=== PATIENT | female | born 1985 | race African-American/Black ===

== ENCOUNTER 2016-11-27 17:06 | Outpatient (CLI) | payer MEDICARE ==
[2016-11-27 18:44] LABS: Anion Gap 13 mmol/L (10-20); BUN (Urea Nitrogen) 13 mg/dL (7.0-18.7); Calc. Creatinine Clearance 0 mL/min (70-130); Calcium 10.2 mg/dL (7.8-10.44); Carbon Dioxide 25 mmol/L (22-29); Chloride 101 mmol/L (98-107); Estimated GFR-MDRD 68
[2016-11-27 18:54] LABS: #Lymphocytes 2.1 thou/uL (1.20-3.40); #Monocytes 0.9 thou/uL (0.11-0.59); #Neutrophils 11.3 thou/uL (1.40-6.50); %Basophils 0.2 % (0.0-1.0); %Eosinophils 0.3 % (0.0-10.0); %Lymphocytes 14.6 % (21.0-51.0); %Monocytes 6.4 % (0.0-10.0); Hematocrit 49.4 % (36.0-47.0); Mean Platelet Volume 7.2 fL (7.4-10.4); White Blood Cell (WBC) Count 14.4 thou/uL (4.8-10.8)
[2016-11-27 19:42] LABS: Neutrophil 80 % (42-75); Reactive Lymphocytes 5 % (0-10)
--- OUTSIDE RECORDS SUMMARY | 2016-11-27 21:07 | XMS | Clinical Summary ---
:1985 Author Organization [facility] Address [address] [place] [address] Phone Care Team Providers Name Role Phone , Primary Care Provider Unavailable Allergies Not on File Current Medications Not on file Active Problems Not on file Social History Tobacco Use Types Packs/Day Years Used Date Never Assessed Sex Assigned at Date Recorded Not on file Last Filed Vital Signs Not on file Plan of Treatment Not on file Results Not on filefrom Last 3 Months
--- OUTSIDE RECORDS SUMMARY | 2016-11-27 21:07 | XMS | Clinical Summary ---
:1985 Author Organization [facility] Address [address] [place] [address] Phone Care Team Providers Name Role Phone , Primary Care Provider Unavailable Allergies No Known Allergies Current Medications Prescription Sig. Disp. Refills Start Date End Date Status predniSONE Take 1 tablet (5 30 tablet 6 12/19/2015 Active (DELTASONE) 5 MG mg total) by mouth tabletIndications:S daily. /P kidney transplant carvedilol (COREG) Take 1 tablet 60 tablet 10 12/20/2015 Active 3.125 MG (3.125 mg total) 7 tabletIndications:S by mouth 2 (two) /P kidney times daily with transplant breakfast and dinner. sulfamethoxazole-tr Take 1 tablet by 10/25/2015 Active imethoprim mouth every (BACTRIM,SEPTRA) Thursday, Thursday, 400-80 mg per Thursday 3 x week . tablet tacrolimus Take 3 capsules 180 capsule 6 05/05/2016 Active (PROGRAF) 0.5 MG (1.5 mg total) by capsuleIndications: mouth 2 (two) S/P kidney times daily. transplant mycophenolate Take 250 mg by Active (CELLCEPT) 250 mg mouth 2 (two) capsule times daily . sulfamethoxazole-tr Take 1 tablet (80 36 tablet 3 08/13/2016 imethoprim mg of trimethoprim 7 (BACTRIM,SEPTRA) total) by mouth 400-80 mg per every Thursday, tabletIndications:S Thursday, Thursday /P kidney for 90 days. transplant Active Problems Problem Noted Date Urinary tract infection without hematuria, site unspecified 08/13/2016 Drug-induced diarrhea 10/25/2015 Edema, unspecified type 09/24/2015 Secondary hyperparathyroidism of renal origin ([facility]) 03/01/2015 Hypertension secondary to other renal disorders 01/16/2015 Oral thrush 01/09/2015 Last Assessment & Plan: She mentioned having sores in her mouth with white substance - nothing evident in clinic today. Will start on nystatin for prophylactic. 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 Labs are pending for today. Personal history of immunosuppressive therapy 12/26/2014 Last Assessment & Plan: She is tolerating her medications and denies any tremor or headache. We will adjust her doses according to her levels today. SOB (shortness of breath) 12/17/2014 End-stage renal disease due to systemic lupus erythematosus ([facility]) 12/12/2014 HTN (hypertension) 05/02/2013 Last Assessment & Plan: Her blood pressure is controlled on her current regimen. 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 She does not have evidence of recurrent disease at this time. Encounters Date Type Specialty Care Team Description 10/20/2016 Telephone Transplant Savita Mireles Appointment (Spoke with patient about her appointment. Patient stated she will need an early apointment due to school. please call her when you schedule her appointment.) from Last 3 Months Family History Medical History Relation Name Comments Diabetes type II Father Hypertension Father Cancer Mother Hypertension Mother Relation Name Status Comments Father Mother Social History Tobacco Use Types Packs/Day Years Used Date Never Smoker Alcohol Use Drinks/Week oz/Week Comments Yes socially every once in a while Sex Assigned at Date Recorded Not on file Last Filed Vital Signs Vital Sign Reading Time Taken Blood Pressure 123/91 08/13/2016 11:19 AM CDT Pulse 60 08/13/2016 11:19 AM CDT Temperature 36.7 C (98.1 F) 08/13/2016 11:19 AM CDT Respiratory Rate 16 08/13/2016 11:19 AM CDT Oxygen Saturation 99% 08/13/2016 11:19 AM CDT Inhaled Oxygen Concentration - - Weight 50.4 kg (111 lb 1.6 oz) 08/13/2016 11:19 AM CDT Height 170.2 cm (5' 7") 08/13/2016 11:19 AM CDT Body Mass Index 17.4 08/13/2016 11:19 AM CDT Plan of Treatment Health Maintenance Due Date Last Done Comments INFLUENZA VACCINE 11/23/2016 Implants Implanted Type Area Make Up Artist Device Expiration Model / Identifier Date Serial / Lot Stent,Uret Polaris 5fr X 10cm - [id number] Uro Stent Right: [employer] 2017 [id number] / Implanted:Qty: 1 on 12/12/2014 by Carmela Paul MD Abdomen [employer] / [id number] Results Not on filefrom Last 3 Months
== END 2016-11-27 17:07 | disposition home or self-care (01) ==
LOC: LABBT 17:06
PROVIDERS: ATTEND Specialist
DX: Z01.818 Encounter for other preprocedural examination (principal); Z94.0 Kidney transplant status; Z87.448 Personal history of other diseases of urinary system
CPT/HCPCS: 80048; 84703; 85025

== ENCOUNTER 2016-11-28 12:23 | Day surgery (SDC) | payer MEDICARE ==
[2016-11-27 17:25] VITALS: BMI 17.2
--- NOTE | 2016-11-28 05:59 | HP ---
HISTORY OF PRESENT ILLNESS: A 31-year-old female with lupus, end-stage renal disease. She was seen in [address] Smyth, at that time, she was undergoing dialysis, and had a left arm fistula. Apparently, this fistula was placed in [place]. At that time was evaluated and had been seen by Dr. Jan Nicole, and Dr. Storm, undergoing a right pulmonary decortication in 2009, and then a left pu lmonary decortication in 09/11/2009. The patient recalls having a fistula placed sometime in 2008 o r 2009. She does not recall where this was placed but we cannot find any records that it was done a [facility]; apparently she was referred to [place]. She underwent a successful transplan t in 12/12/2014 cadaveric and has been doing well. She complained of pain in her left shoulder, rad iating down to her arm, occurring at night, and other times during the day. Dr. Smyth performe d a fistulogram, he referred to my office, thinking that she had arterial steal syndrome. The patie nt's fistulogram revealed occlusion of the cephalic vein outflow at the shoulder. The patient was t hought to have an arterial steal, but the patient does not have symptoms of arterial steal. Her lef t hand function is good. Her left hand is warm. She has a palpable ulnar pulse. She has good hand strength and function. There were no signs of arterial insufficiency. I think her problems are re lated to her cephalic vein fistula outflow obstruction. Considering her cadaveric transplant, we wo uld like to preserve her fistula, she does not ever want to have a fistula in her right arm, and at her young age of 31, plan would be to transpose the cephalic vein in the left axilla. 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 She is working also. She is working at [employer]. ALLERGIES: None. TOBACCO: None. ALCOHOL: None. MEDICATIONS: Prograf 1.5 mg a day, CellCept daily, Bactrim 400 mg a day, Valcyte daily, Coreg daily , Protonix daily, amlodipine daily, Zofran as needed. PAST MEDICAL HISTORY: Lupus, end-stage renal disease with a functioning renal transplant, currently not on dialysis, transplant on 12/12/2014 in [place], hypertension. ALLERGIES: None. PAST SURGICAL HISTORY: Left arm fistula placed in 2009 or 2010 in [place]. On 2010, right and left pulmonary decortication. Fistula left arm in the past. Peritoneal dialysis catheter placement rem cliff as she was too small and could not handle the fluid volume to do peritoneal dialysis. REVIEW OF SYSTEMS: Ten point noncontributory. PHYSICAL EXAMINATION: VITAL SIGNS: Weight 117 pounds, height 67 inches, blood pressure 114/81, heart rate 74 and temperat ure 97.6 degrees. HEAD, EARS, EYES, NOSE, AND THROAT: Unremarkable. LUNGS: Clear to auscultation. CARDIAC: Regular rate and rhythm without murmur or gallop. ABDOMEN: Soft, nontender, no masses. EXTREMITIES: Left arm fistula, prominent pulsations. Left upper arm, cephalic vein fistula. Good hand function. Left normal capillary refill. Warm hand. Good hand strength. Palpable ulnar pulse . ASSESSMENT AND PLAN: 1. Dysfunctional fistula left upper arm with outflow venous obstruction at the cephalic vein, subcl boris junction. Status post fistulogram, Dr. Smyth, no evidence of arterial steal. This optio ns of ligation of her fistula versus salvage were given, and she chose the latter. Plan is to trans pose the upper arm cephalic vein fistula of the axillary vein. Fortunately, Dr. Smyth did not place a stent as he was not able to get a wire across the obstruction. Risks of infection, bleeding , reoperation and a small possibility of using saphenous vein was discussed, she consents. 2. Lupus. 3. Hypertension. 4. Renal transplant, 12/12/2014.
[2016-11-28] MEDS ORDERED: Protamine Sulfate 50 MG/5 ML VIAL ONE (13:17)
[2016-11-28] MEDS ORDERED: Lidocaine 1% w/Epinephrine 1:200K 30 ML VIAL ONE (13:17)
[2016-11-28] MEDS ORDERED: Bupivacaine PF 0.5% 30 ML VIAL ONE (13:17)
[2016-11-28] MEDS ORDERED: Heparin 5,000 UNITS/ML VIAL ONE (13:17)
[2016-11-28] MEDS ORDERED: Fentanyl 100 MCG/2 ML VIAL ONE ×2 (13:33→16:15)
[2016-11-28] MEDS ORDERED: Heparin 10,000 UNITS/1 ML VIAL ONE (13:33)
[2016-11-28] MEDS ORDERED: Midazolam HCl 2 mg/2 ml Vial ONE (13:33)
--- NOTE | 2016-11-28 23:24 | OP ---
DATE OF PROCEDURE: 11/28/2016 PREOPERATIVE DIAGNOSIS: Lupus; history of dialysis access, recent 2014; renal transplant; dysfuncti onal left arm dialysis fistula; cephalic vein outflow obstruction; subclavian vein junction refracto ry interventional management. POSTOPERATIVE DIAGNOSIS: Lupus; history of dialysis access, recent 2014; renal transplant; dysfunct ional left arm dialysis fistula; cephalic vein outflow obstruction; subclavian vein junction refract ory interventional management. PROCEDURE: The revision of left arm dialysis fistula, transposition of cephalic vein outflow from t he subclavian vein to the axillary vein. SURGEON: Dr. Luis Daniel Mon ANESTHESIA: General. Local 0.5% Marcaine without epinephrine, 30 mL, mixed with 1% Xylocaine with epinephrine, 30 mL. SURGEON: Luis Daniel Mon M.D. ESTIMATED BLOOD LOSS: 40 mL TRANSFUSED: None. FINDINGS: Excellent caliber cephalic vein, good caliber axillary vein. PROCEDURE: Patient was taken to the operating room where under general anesthesia, her left chest, shoulder, upper extremity was prepared with chloraprep, draped in routine fashion. Local anesthetic infiltrated into skin and subcutaneous tissue about the operative site. Incision made in the upper deltopectoral groove overlying the cephalic vein were segmental incision carried out along the cour se of the cephalic vein to the proximal upper arm. The vein was dissected free circumferentially, o ne large branch superiorly ligated between 3-0 silk sutures and the patient was given 6000 units of heparin intravenously. After adequate circulation time, the outflow cephalic vein in the shoulder d issected free, clamped, divided and stump ligated with a stick suture of 2-0 silk. The vein had bee n clamped distally with a vascular clamp. A tunnel was then created with a large Hoda clamp and br ought through the tunnel and opened and it had good arterial flow. Vascular clamp applied. Axillar y vein had been dissected free via left axillary incision. It was of good caliber. It is controlle d proximally and distally with Silastic vessel loops. Nerves kept free of harm, the vein was contro lled proximally and distally and longitudinal venotomy made for a 3 cm length and stay sutures of 6- 0 Prolene placed and the end of the cephalic vein tailored for an end cephalic vein to side axillary vein anastomosis using continuous suture of 6-0 Prolene. Once anastomosis completed, vascular cont rol was released. There was good flow in the fistula and a prominent pulsations had resolved and sh e a good thrill and bruit. Good hemostasis noted. The patient was given 25 mg of protamine intrave nously. Surgicel applied. Good hemostasis ensured. Local anesthetic infiltrated into skin and sub cutaneous tissue about the operative sites. Subcutaneous tissues approximated with 3-0 Monocryl, sk in with subdermal 4-0 Monocryl and DermaGlue applied.
== END 2016-11-28 17:55 ==
LOC: SDC 12:23
PROVIDERS: ATTEND Specialist
PROC: 05W Upper Veins, Revision (ICD-10-PCS; principal; 2016-11-28)
DX: T82.590A Other mechanical complication of surgically created arteriovenous fistula, initial encounter (principal); M32.9 Systemic lupus erythematosus, unspecified; I12.0 Hypertensive chronic kidney disease with stage 5 chronic kidney disease or end stage renal disease; N18.6 End stage renal disease; Z99.2 Dependence on renal dialysis; Z79.899 Other long term (current) drug therapy; Z94.0 Kidney transplant status
CPT/HCPCS: J1644; J2250; J2720; J3010; S0020

== ENCOUNTER 2018-02-18 13:08 | Outpatient (CLI) | payer MEDICARE ==
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
== END 2018-02-18 13:09 | disposition home or self-care (01) ==
LOC: BICCT 13:08
PROVIDERS: ATTEND Internal Medicine Nephrology
DX: R10.9 Unspecified abdominal pain (principal); N18.6 End stage renal disease; M87.851 Other osteonecrosis, right femur; M87.852 Other osteonecrosis, left femur; N99.840 Postprocedural hematoma of a genitourinary system organ or structure following a genitourinary system procedure; Z94.0 Kidney transplant status
CPT/HCPCS: 74176

== ENCOUNTER 2021-01-31 21:30 | Inpatient (IN) | payer BC ==
[2021-01-31] MEDS ORDERED: Morphine 4 MG/ML VIAL ONE (23:55)
[2021-01-31 23:57] LABS: #Lymphocytes 0.6 thou/uL (1.20-3.40); #Monocytes 0.1 thou/uL (0.11-0.59); #Neutrophils 9.2 thou/uL (1.40-6.50); %Basophils 0.5 % (0.0-1.0); %Eosinophils 0.1 % (0.0-10.0); %Lymphocytes 6.3 % (21.0-51.0); %Monocytes 0.5 % (0.0-10.0); %Neutrophils 92.5 % (42.0-75.0); Hemoglobin 9.2 g/dL (12.0-16.0); Mean Corpuscular HGB CONC 36.4 g/dL (32.0-36.0); Mean Corpuscular Volume 79.7 fL (78.0-98.0); Mean Platelet Volume 9.1 fL (7.4-10.4); Platelet Count 175 thou/uL (130-400); RBC Distribution Width 14.8 % (11.5-14.5); Red Blood Cell (RBC) Count 3.19 mill/uL (4.20-5.40)
[2021-02-01 00:05] LABS: BHCG - Serum Negative (NEGATIVE); Pregs Control Background? CLEAR/WHITE (CLR/WHITE); Pregs Control Bar Appear? YES (CONTROL BAR)
[2021-02-01 00:14] LABS: ALT (SGPT) 125 U/L (8-55); AST (SGOT) 82 U/L (5-34); Albumin 3.7 g/dL (3.5-5.0); Alkaline Phosphatase 77 U/L (40-110); Anion Gap 17 mmol/L (10-20); BUN (Urea Nitrogen) 114 mg/dL (7.0-18.7); Bilirubin, Total 0.8 mg/dL (0.2-1.2); Calc. Creatinine Clearance 0 mL/min (70-130); Calcium 9.9 mg/dL (7.8-10.44); Carbon Dioxide 20 mmol/L (22-29); Chloride 100 mmol/L (98-107); Globulin 2.9 g/dL (2.4-3.5); Glucose 173 mg/dL (70-105); Lipase 63 U/L (8-78); Potassium 5.2 mmol/L (3.5-5.1); Protein, Total 6.6 g/dL (6.0-8.3); Sodium 132 mmol/L (136-145)
[2021-02-01] MEDS ORDERED: Ondansetron ODT 4 MG TAB SL PRN (02:00)
[2021-02-01] MEDS ORDERED: Ondansetron PF 4 MG/2 ML Vial IVP PRN (02:00)
[2021-02-01] MEDS: Morphine 4 MG/ML VIAL SLOW IVP PRN ×3 (02:22→09:12)
[2021-02-01] MEDS ORDERED: Pantoprazole 40 MG VIAL IVP SCH (04:15)
[2021-02-01] MEDS ORDERED: Acetaminophen 650 MG Suppository PR PRN (04:16)
[2021-02-01 04:39] LABS: #Lymphocytes 0.6 thou/uL (1.20-3.40); #Monocytes 0.1 thou/uL (0.11-0.59); #Neutrophils 6.8 thou/uL (1.40-6.50); %Basophils 0.6 % (0.0-1.0); %Eosinophils 0.3 % (0.0-10.0); %Lymphocytes 7.4 % (21.0-51.0); %Monocytes 1.2 % (0.0-10.0); %Neutrophils 90.5 % (42.0-75.0); Hemoglobin 7.8 g/dL (12.0-16.0); Mean Corpuscular HGB CONC 35.2 g/dL (32.0-36.0); Mean Corpuscular Volume 79.7 fL (78.0-98.0); Platelet Count 155 thou/uL (130-400); RBC Distribution Width 14.8 % (11.5-14.5); Red Blood Cell (RBC) Count 2.79 mill/uL (4.20-5.40); White Blood Cell (WBC) Count 7.5 thou/uL (4.8-10.8)
[2021-02-01 04:58] LABS: Anion Gap 16 mmol/L (10-20); BUN (Urea Nitrogen) 114 mg/dL (7.0-18.7); Calc. Creatinine Clearance 5 mL/min (70-130); Calcium 9.1 mg/dL (7.8-10.44); Carbon Dioxide 19 mmol/L (22-29); Chloride 102 mmol/L (98-107); Glucose 134 mg/dL (70-105); Potassium 5.2 mmol/L (3.5-5.1); Sodium 132 mmol/L (136-145)
[2021-02-01 07:06] LABS: Iron 139 ug/dL (50-170); Iron Binding Capacity, Total 140 mcg/dL (265-497)
[2021-02-01] MEDS ORDERED: Lidocaine 4% Cream 5 GM TUBE w/ Tegaderm TOP SCH (09:15)
[2021-02-01] MEDS ORDERED: Epoetin (ESRD) 20,000 UNITS/ML SC SCH (10:15)
[2021-02-01 11:13] LABS: SARS-CoV-2 PCR by NAA Not Detected (NotDetected)
[2021-02-01] MEDS: Heparin 5,000 UNITS/ML VIAL SC SCH ×3 (11:50→21:31)
[2021-02-01] MEDS: Sevelamer Carbonate 800 MG TAB PO SCH ×3 (11:50→18:02)
[2021-02-01] MEDS: Mycophenolate ER 180 MG TAB PO SCH ×2 (13:54→23:07)
[2021-02-01] MEDS: Hydroxychloroquine Sulfate 200 MG TAB PO SCH (13:54)
[2021-02-01] MEDS: Tacrolimus 0.5 MG CAP PO SCH ×3 (13:55→21:28)
[2021-02-01] MEDS: EPOETIN ALFA-EPBX (ESRD) 4,000 UNIT/ML VIAL SC SCH (13:57)
[2021-02-01 20:17] LABS: Bacteria/HPF None Seen HPF (None Seen); Bilirubin Negative (Negative); Blood, Urine Negative (Negative); Clarity Clear (Clear); Glucose, Urine (Dipstick) 30 mg/dL (Negative); Ketone, Urine Negative (Negative); Leukocyte Negative Leu/uL (Negative); Nitrite Negative (Negative); Protein, Urine (Dipstick) 20 mg/dL (Neg-Trace); RBC/HPF 0-3 HPF (0-3); Specific Gravity, Urine 1.013 (1.002-1.036); Squamous Epithelial 0-3 HPF (0-3); Urobilinogen Normal mg/dL (Less than 2); WBC/HPF 0-3 HPF (0-3); pH, Urine 7.5 (5.0-9.0)
[2021-02-01] MEDS: Pantoprazole 40 MG VIAL IVP SCH (21:29)
[2021-02-01] MEDS: NIFEdipine XL 30 MG TAB PO SCH (21:49)
[2021-02-01] MEDS: Carvedilol 6.25 MG TAB PO SCH (21:50)
[2021-02-01] MEDS: oxyCODONE 5 MG TAB PO SCH (23:08)
[2021-02-02 04:53] LABS: #Lymphocytes 0.6 thou/uL (1.20-3.40); #Monocytes 0.2 thou/uL (0.11-0.59); #Neutrophils 3.7 thou/uL (1.40-6.50); %Basophils 0.3 % (0.0-1.0); %Eosinophils 0.8 % (0.0-10.0); %Lymphocytes 13.3 % (21.0-51.0); %Monocytes 5.1 % (0.0-10.0); %Neutrophils 80.5 % (42.0-75.0); Hemoglobin 7.2 g/dL (12.0-16.0); Mean Corpuscular Hemoglobin 27.5 pg (27.0-31.0); Mean Corpuscular Volume 80.7 fL (78.0-98.0); Mean Platelet Volume 8.9 fL (7.4-10.4); Platelet Count 153 thou/uL (130-400); RBC Distribution Width 14.8 % (11.5-14.5); Red Blood Cell (RBC) Count 2.63 mill/uL (4.20-5.40); White Blood Cell (WBC) Count 4.6 thou/uL (4.8-10.8)
[2021-02-02 05:11] LABS: Anion Gap 12 mmol/L (10-20); BUN (Urea Nitrogen) 38 mg/dL (7.0-18.7); Calc. Creatinine Clearance 9 mL/min (70-130); Calcium 9.4 mg/dL (7.8-10.44); Carbon Dioxide 30 mmol/L (22-29); Chloride 99 mmol/L (98-107); Glucose 106 mg/dL (70-105); Phosphorus 4.4 mg/dL (2.3-4.7); Potassium 4.7 mmol/L (3.5-5.1); Sodium 136 mmol/L (136-145)
[2021-02-02] MEDS: oxyCODONE 5 MG TAB PO SCH ×4 (06:22→23:43)
[2021-02-02] MEDS ORDERED: Pantoprazole 40 MG VIAL IVP SCH (09:00)
[2021-02-02] MEDS: Sevelamer Carbonate 800 MG TAB PO SCH ×3 (09:02→17:14)
[2021-02-02] MEDS: Carvedilol 6.25 MG TAB PO SCH ×2 (09:02→21:44)
[2021-02-02] MEDS: predniSONE 20 MG TAB PO SCH (09:02)
[2021-02-02] MEDS: Calcitriol 0.25 MCG CAP PO SCH (09:02)
[2021-02-02] MEDS: Heparin 5,000 UNITS/ML VIAL SC SCH ×3 (09:02→21:32)
[2021-02-02] MEDS: Pantoprazole 40 MG VIAL IVP SCH ×2 (09:03→21:43)
[2021-02-02] MEDS: Mycophenolate ER 180 MG TAB PO SCH ×2 (09:03→21:44)
[2021-02-02] MEDS: Polyethylene Glycol 3350 17 GM Packet PO SCH (09:03)
[2021-02-02] MEDS: Hydroxychloroquine Sulfate 200 MG TAB PO SCH (09:03)
[2021-02-02] MEDS ORDERED: PROPOFOL 200 MG/20 ML VIAL ONE (14:38)
[2021-02-02] MEDS ORDERED: LIDOCAINE 4% Topical Sol 4 ML SOLN.PK.G. TP SCH (15:00)
[2021-02-02] MEDS ORDERED: Lidocaine 2% Jelly 5 ML TUBE TOP SCH (15:15)
[2021-02-02] MEDS: NIFEdipine XL 30 MG TAB PO SCH (21:43)
[2021-02-02] MEDS: Tacrolimus 0.5 MG CAP PO SCH (21:43)
[2021-02-03] MEDS: oxyCODONE 5 MG TAB PO SCH ×4 (08:17→23:59)
[2021-02-03] MEDS: Sevelamer Carbonate 800 MG TAB PO SCH ×3 (09:37→17:48)
[2021-02-03] MEDS: predniSONE 20 MG TAB PO SCH (09:37)
[2021-02-03] MEDS: Polyethylene Glycol 3350 17 GM Packet PO SCH (09:37)
[2021-02-03] MEDS: Tacrolimus 0.5 MG CAP PO SCH ×2 (09:38→21:11)
[2021-02-03] MEDS: Calcitriol 0.25 MCG CAP PO SCH (09:39)
[2021-02-03] MEDS: Heparin 5,000 UNITS/ML VIAL SC SCH ×3 (09:39→21:10)
[2021-02-03] MEDS: Carvedilol 6.25 MG TAB PO SCH ×2 (09:39→21:09)
[2021-02-03] MEDS: Pantoprazole 40 MG VIAL IVP SCH (09:40)
[2021-02-03] MEDS: Mycophenolate ER 180 MG TAB PO SCH ×2 (09:47→21:10)
[2021-02-03] MEDS: Hydroxychloroquine Sulfate 200 MG TAB PO SCH (10:13)
[2021-02-03] MEDS ORDERED: GoLYTELY 4,000 ml Bottle PO SCH (12:00)
[2021-02-03] MEDS: diphenhydrAMINE 25 MG CAP PO PRN ×2 (15:39→21:11)
[2021-02-03] MEDS: Ferrous Sulfate 325 MG TAB PO SCH (17:50)
[2021-02-03] MEDS: NIFEdipine XL 30 MG TAB PO SCH (21:10)
[2021-02-04 04:26] LABS: #Eosinphils 0.1 thou/uL (0.0-0.7); #Lymphocytes 0.5 thou/uL (1.20-3.40); #Monocytes 0.1 thou/uL (0.11-0.59); %Basophils 0.2 % (0.0-1.0); %Eosinophils 1.4 % (0.0-10.0); %Lymphocytes 9.3 % (21.0-51.0); %Monocytes 1.4 % (0.0-10.0); %Neutrophils 87.7 % (42.0-75.0); Hemoglobin 6.9 g/dL (12.0-16.0); Mean Corpuscular HGB CONC 34.8 g/dL (32.0-36.0); Mean Corpuscular Hemoglobin 28.4 pg (27.0-31.0); Mean Corpuscular Volume 81.6 fL (78.0-98.0); Mean Platelet Volume 8.7 fL (7.4-10.4); Platelet Count 145 thou/uL (130-400); RBC Distribution Width 14.9 % (11.5-14.5); Red Blood Cell (RBC) Count 2.42 mill/uL (4.20-5.40); White Blood Cell (WBC) Count 5.7 thou/uL (4.8-10.8)
[2021-02-04 04:50] LABS: ALT (SGPT) 150 U/L (8-55); AST (SGOT) 65 U/L (5-34); Albumin 3.5 g/dL (3.5-5.0); Alkaline Phosphatase 77 U/L (40-110); Anion Gap 13 mmol/L (10-20); BUN (Urea Nitrogen) 23 mg/dL (7.0-18.7); Bilirubin, Total 0.8 mg/dL (0.2-1.2); Calc. Creatinine Clearance 8 mL/min (70-130); Carbon Dioxide 30 mmol/L (22-29); Chloride 96 mmol/L (98-107); Globulin 2.7 g/dL (2.4-3.5); Glucose 101 mg/dL (70-105); Potassium 4.3 mmol/L (3.5-5.1); Protein, Total 6.2 g/dL (6.0-8.3); Sodium 135 mmol/L (136-145)
[2021-02-04] MEDS: oxyCODONE 5 MG TAB PO SCH (05:40)
[2021-02-04] MEDS ORDERED: oxyCODONE 5 MG TAB PO PRN (08:16)
[2021-02-04] MEDS: Ferrous Sulfate 325 MG TAB PO SCH ×2 (09:56→17:59)
[2021-02-04] MEDS: predniSONE 20 MG TAB PO SCH (09:56)
[2021-02-04] MEDS: Sevelamer Carbonate 800 MG TAB PO SCH ×3 (09:56→18:00)
[2021-02-04] MEDS: Polyethylene Glycol 3350 17 GM Packet PO SCH (10:03)
[2021-02-04] MEDS: Pantoprazole 40 MG VIAL IVP SCH (10:03)
[2021-02-04] MEDS: Calcitriol 0.25 MCG CAP PO SCH (10:04)
[2021-02-04] MEDS: Hydroxychloroquine Sulfate 200 MG TAB PO SCH (10:04)
[2021-02-04] MEDS: Tacrolimus 0.5 MG CAP PO SCH ×2 (10:04→21:39)
[2021-02-04] MEDS: Carvedilol 6.25 MG TAB PO SCH ×2 (10:05→21:38)
[2021-02-04] MEDS: Sulfameth/Trimethoprim SS 400-80MG TAB PO SCH (10:06)
[2021-02-04] MEDS: Mycophenolate ER 180 MG TAB PO SCH ×2 (10:07→23:06)
[2021-02-04 11:22] LABS: PTT 35.5 sec (22.9-36.1)
[2021-02-04] MEDS ORDERED: Ondansetron PF 4 MG/2 ML Vial IVP PRN (13:39)
[2021-02-04] MEDS: Ondansetron ODT 4 MG TAB PO PRN (14:08)
[2021-02-04] MEDS: diphenhydrAMINE 25 MG CAP PO PRN ×2 (14:08→21:38)
[2021-02-05 05:10] LABS: #Eosinphils 0.1 thou/uL (0.0-0.7); #Lymphocytes 0.7 thou/uL (1.20-3.40); #Monocytes 0.1 thou/uL (0.11-0.59); %Basophils 0.4 % (0.0-1.0); %Eosinophils 2.8 % (0.0-10.0); %Lymphocytes 18.8 % (21.0-51.0); %Monocytes 1.6 % (0.0-10.0); %Neutrophils 76.3 % (42.0-75.0); Hemoglobin 8.1 g/dL (12.0-16.0); Mean Corpuscular HGB CONC 35.6 g/dL (32.0-36.0); Mean Corpuscular Hemoglobin 29.3 pg (27.0-31.0); Mean Corpuscular Volume 82.2 fL (78.0-98.0); Mean Platelet Volume 8.3 fL (7.4-10.4); Platelet Count 169 thou/uL (130-400); RBC Distribution Width 14.6 % (11.5-14.5); Red Blood Cell (RBC) Count 2.78 mill/uL (4.20-5.40); White Blood Cell (WBC) Count 3.9 thou/uL (4.8-10.8)
[2021-02-05 05:33] LABS: Anion Gap 14 mmol/L (10-20); BUN (Urea Nitrogen) 27 mg/dL (7.0-18.7); Calc. Creatinine Clearance 3 mL/min (70-130); Calcium 9.6 mg/dL (7.8-10.44); Carbon Dioxide 29 mmol/L (22-29); Chloride 98 mmol/L (98-107); Glucose 114 mg/dL (70-105); Potassium 4.6 mmol/L (3.5-5.1); Sodium 136 mmol/L (136-145)
[2021-02-05] MEDS ORDERED: Lidocaine 2% Jelly 5 ML TUBE TOP SCH (08:15)
[2021-02-05] MEDS: Ferrous Sulfate 325 MG TAB PO SCH ×2 (11:51→13:17)
[2021-02-05] MEDS: Sevelamer Carbonate 800 MG TAB PO SCH ×3 (11:51→17:07)
[2021-02-05] MEDS: predniSONE 20 MG TAB PO SCH (13:16)
[2021-02-05] MEDS: Mycophenolate ER 180 MG TAB PO SCH ×2 (13:16→20:45)
[2021-02-05] MEDS: Calcitriol 0.25 MCG CAP PO SCH (13:17)
[2021-02-05] MEDS: Carvedilol 6.25 MG TAB PO SCH ×2 (13:17→20:45)
[2021-02-05] MEDS: Tacrolimus 0.5 MG CAP PO SCH ×2 (13:18→20:46)
[2021-02-05] MEDS: Pantoprazole 40 MG VIAL IVP SCH (13:19)
[2021-02-05] MEDS: Hydroxychloroquine Sulfate 200 MG TAB PO SCH (13:19)
[2021-02-05] MEDS: Polyethylene Glycol 3350 17 GM Packet PO SCH ×2 (13:24→20:45)
[2021-02-06] MEDS: diphenhydrAMINE 25 MG CAP PO PRN (01:10)
[2021-02-06 06:27] LABS: #Eosinphils 0.1 thou/uL (0.0-0.7); #Lymphocytes 0.6 thou/uL (1.20-3.40); #Monocytes 0.1 thou/uL (0.11-0.59); #Neutrophils 4.8 thou/uL (1.40-6.50); %Basophils 0.4 % (0.0-1.0); %Eosinophils 1.3 % (0.0-10.0); %Lymphocytes 10.4 % (21.0-51.0); %Monocytes 1.7 % (0.0-10.0); %Neutrophils 86.3 % (42.0-75.0); Hemoglobin 7.9 g/dL (12.0-16.0); Mean Corpuscular HGB CONC 35.9 g/dL (32.0-36.0); Mean Corpuscular Hemoglobin 29.4 pg (27.0-31.0); Mean Corpuscular Volume 81.9 fL (78.0-98.0); Mean Platelet Volume 8.2 fL (7.4-10.4); Platelet Count 138 thou/uL (130-400); White Blood Cell (WBC) Count 5.6 thou/uL (4.8-10.8)
[2021-02-06 06:48] LABS: Anion Gap 14 mmol/L (10-20); BUN (Urea Nitrogen) 16 mg/dL (7.0-18.7); Calc. Creatinine Clearance 9 mL/min (70-130); Calcium 9.8 mg/dL (7.8-10.44); Carbon Dioxide 30 mmol/L (22-29); Chloride 97 mmol/L (98-107); Glucose 81 mg/dL (70-105); Potassium 4.9 mmol/L (3.5-5.1); Sodium 136 mmol/L (136-145)
[2021-02-06] MEDS: predniSONE 20 MG TAB PO SCH (08:41)
[2021-02-06] MEDS: Ferrous Sulfate 325 MG TAB PO SCH ×2 (08:41→16:20)
[2021-02-06] MEDS: Sevelamer Carbonate 800 MG TAB PO SCH ×3 (08:42→16:20)
[2021-02-06] MEDS: Carvedilol 6.25 MG TAB PO SCH ×2 (08:42→21:53)
[2021-02-06] MEDS: Calcitriol 0.25 MCG CAP PO SCH (08:42)
[2021-02-06] MEDS: Mycophenolate ER 180 MG TAB PO SCH ×2 (08:43→21:52)
[2021-02-06] MEDS: Hydroxychloroquine Sulfate 200 MG TAB PO SCH (08:43)
[2021-02-06] MEDS: Pantoprazole 40 MG VIAL IVP SCH (08:44)
[2021-02-06] MEDS: Sulfameth/Trimethoprim SS 400-80MG TAB PO SCH (08:44)
[2021-02-06] MEDS: Tacrolimus 0.5 MG CAP PO SCH ×2 (08:45→21:54)
[2021-02-06] MEDS: Polyethylene Glycol 3350 17 GM Packet PO SCH ×2 (08:52→21:50)
[2021-02-06 09:43] VITALS: BMI 17.1
[2021-02-06 10:17] LABS: Tacrolimus 5.3 ng/mL (2.0-20.0)
[2021-02-07] MEDS: diphenhydrAMINE 25 MG CAP PO PRN (01:18)
[2021-02-07 06:41] LABS: #Eosinphils 0.1 thou/uL (0.0-0.7); #Lymphocytes 0.9 thou/uL (1.20-3.40); #Monocytes 0.1 thou/uL (0.11-0.59); #Neutrophils 4.3 thou/uL (1.40-6.50); %Basophils 0.4 % (0.0-1.0); %Eosinophils 1.9 % (0.0-10.0); %Lymphocytes 15.5 % (21.0-51.0); %Monocytes 2.6 % (0.0-10.0); %Neutrophils 79.6 % (42.0-75.0); Hemoglobin 7.9 g/dL (12.0-16.0); Mean Corpuscular HGB CONC 35.9 g/dL (32.0-36.0); Mean Corpuscular Hemoglobin 29.5 pg (27.0-31.0); Mean Platelet Volume 8.1 fL (7.4-10.4); Platelet Count 160 thou/uL (130-400); RBC Distribution Width 15.1 % (11.5-14.5); Red Blood Cell (RBC) Count 2.69 mill/uL (4.20-5.40); White Blood Cell (WBC) Count 5.4 thou/uL (4.8-10.8)
[2021-02-07 06:56] LABS: Anion Gap 15 mmol/L (10-20); BUN (Urea Nitrogen) 25 mg/dL (7.0-18.7); Calc. Creatinine Clearance 7 mL/min (70-130); Calcium 10.2 mg/dL (7.8-10.44); Carbon Dioxide 32 mmol/L (22-29); Chloride 96 mmol/L (98-107); Glucose 111 mg/dL (70-105); Potassium 4.8 mmol/L (3.5-5.1); Sodium 138 mmol/L (136-145)
[2021-02-07] MEDS: Ferrous Sulfate 325 MG TAB PO SCH ×2 (12:23→17:04)
[2021-02-07] MEDS: Sevelamer Carbonate 800 MG TAB PO SCH ×3 (12:23→17:04)
[2021-02-07] MEDS: Tacrolimus 0.5 MG CAP PO SCH ×2 (12:26→21:23)
[2021-02-07] MEDS: Mycophenolate ER 180 MG TAB PO SCH ×2 (12:26→21:25)
[2021-02-07] MEDS: Calcitriol 0.25 MCG CAP PO SCH (12:27)
[2021-02-07] MEDS: predniSONE 20 MG TAB PO SCH (12:27)
[2021-02-07] MEDS: Hydroxychloroquine Sulfate 200 MG TAB PO SCH (12:27)
[2021-02-07] MEDS: Polyethylene Glycol 3350 17 GM Packet PO SCH ×2 (12:27→21:26)
[2021-02-07] MEDS: Carvedilol 6.25 MG TAB PO SCH ×2 (12:27→21:25)
[2021-02-07] MEDS: Acetaminophen 325 MG TAB PO PRN (13:27)
[2021-02-07] MEDS: Ondansetron ODT 4 MG TAB PO PRN (13:27)
[2021-02-07] MEDS: Pantoprazole 40 MG VIAL IVP SCH (13:37)
[2021-02-07] MEDS: Calcium Carbonate 500 MG ChewTAB PO PRN (23:46)
[2021-02-08] MEDS: diphenhydrAMINE 25 MG CAP PO PRN (01:08)
[2021-02-08] MEDS: Sevelamer Carbonate 800 MG TAB PO SCH ×3 (09:39→15:39)
[2021-02-08] MEDS: Tacrolimus 0.5 MG CAP PO SCH ×2 (09:39→21:49)
[2021-02-08] MEDS: Mycophenolate ER 180 MG TAB PO SCH ×2 (09:39→21:50)
[2021-02-08] MEDS: Hydroxychloroquine Sulfate 200 MG TAB PO SCH (09:40)
[2021-02-08] MEDS: Carvedilol 6.25 MG TAB PO SCH ×2 (09:40→21:50)
[2021-02-08] MEDS: predniSONE 20 MG TAB PO SCH (09:40)
[2021-02-08] MEDS: Sulfameth/Trimethoprim SS 400-80MG TAB PO SCH (09:40)
[2021-02-08] MEDS: Calcitriol 0.25 MCG CAP PO SCH (09:40)
[2021-02-08] MEDS: Ferrous Sulfate 325 MG TAB PO SCH ×2 (09:41→15:39)
[2021-02-08] MEDS: Polyethylene Glycol 3350 17 GM Packet PO SCH ×2 (10:06→21:50)
[2021-02-08] MEDS: EPOETIN ALFA-EPBX (ESRD) 4,000 UNIT/ML VIAL SC SCH (12:44)
[2021-02-09] MEDS: Calcium Carbonate 500 MG ChewTAB PO PRN (00:12)
[2021-02-09] MEDS: diphenhydrAMINE 25 MG CAP PO PRN (00:12)
[2021-02-09 04:47] LABS: #Lymphocytes 0.5 thou/uL (1.20-3.40); #Monocytes 0.1 thou/uL (0.11-0.59); #Neutrophils 2.9 thou/uL (1.40-6.50); %Basophils 0.2 % (0.0-1.0); %Eosinophils 0.9 % (0.0-10.0); %Lymphocytes 13.2 % (21.0-51.0); %Monocytes 3.6 % (0.0-10.0); %Neutrophils 82.1 % (42.0-75.0); Hemoglobin 7.7 g/dL (12.0-16.0); Mean Corpuscular HGB CONC 35.1 g/dL (32.0-36.0); Mean Corpuscular Volume 82.6 fL (78.0-98.0); Mean Platelet Volume 7.7 fL (7.4-10.4); Platelet Count 181 thou/uL (130-400); RBC Distribution Width 15.6 % (11.5-14.5); Red Blood Cell (RBC) Count 2.65 mill/uL (4.20-5.40); White Blood Cell (WBC) Count 3.5 thou/uL (4.8-10.8)
[2021-02-09 05:16] LABS: ALT (SGPT) 88 U/L (8-55); AST (SGOT) 28 U/L (5-34); Albumin 3.4 g/dL (3.5-5.0); Alkaline Phosphatase 73 U/L (40-110); Anion Gap 11 mmol/L (10-20); BUN (Urea Nitrogen) 21 mg/dL (7.0-18.7); Bilirubin, Total 0.6 mg/dL (0.2-1.2); Calc. Creatinine Clearance 7 mL/min (70-130); Calcium 10.2 mg/dL (7.8-10.44); Carbon Dioxide 30 mmol/L (22-29); Chloride 97 mmol/L (98-107); Globulin 2.8 g/dL (2.4-3.5); Glucose 137 mg/dL (70-105); Potassium 5.4 mmol/L (3.5-5.1); Protein, Total 6.2 g/dL (6.0-8.3); Sodium 133 mmol/L (136-145)
[2021-02-09] MEDS: Ferrous Sulfate 325 MG TAB PO SCH ×2 (10:11→13:53)
[2021-02-09] MEDS: Polyethylene Glycol 3350 17 GM Packet PO SCH (10:11)
[2021-02-09] MEDS: Sevelamer Carbonate 800 MG TAB PO SCH ×2 (10:11→13:54)
[2021-02-09] MEDS: Acetaminophen 325 MG TAB PO PRN (11:46)
[2021-02-09 11:54] VITALS: BP 142/90; TEMP 98
[2021-02-09] MEDS: Mycophenolate ER 180 MG TAB PO SCH (13:52)
[2021-02-09] MEDS: Tacrolimus 0.5 MG CAP PO SCH (13:52)
[2021-02-09] MEDS: predniSONE 20 MG TAB PO SCH (13:53)
[2021-02-09] MEDS: Calcitriol 0.25 MCG CAP PO SCH (13:53)
[2021-02-09] MEDS: Hydroxychloroquine Sulfate 200 MG TAB PO SCH (13:53)
[2021-02-09] MEDS: Carvedilol 6.25 MG TAB PO SCH (13:53)
[2021-02-11] MEDS ORDERED: Sulfameth/Trimethoprim SS 400-80MG TAB PO SCH (10:00)
== END 2021-02-09 14:23 | disposition home or self-care (01) | DRG 698 ==
LOC: ERS 21:30 → 2NO 02-01 00:45
PROVIDERS: ADMIT Student in an Organized Health Care Education/Training Program; ATTEND Internal Medicine
PROC: 5A1D70Z Performance of Urinary Filtration, Intermittent, Less than 6 Hours Per Day (ICD-10-PCS; 2021-02-01)
PROC: 0DB68ZX Excision of Stomach, Via Natural or Artificial Opening Endoscopic, Diagnostic (ICD-10-PCS; principal; 2021-02-02)
PROC: 30233N1 Transfusion of Nonautologous Red Blood Cells into Peripheral Vein, Percutaneous Approach (ICD-10-PCS; 2021-02-04)
DX: T86.11 Kidney transplant rejection (principal); N18.6 End stage renal disease; E87.1 Hypo-osmolality and hyponatremia; N25.81 Secondary hyperparathyroidism of renal origin; I13.0 Hypertensive heart and chronic kidney disease with heart failure and stage 1 through stage 4 chronic kidney disease, or unspecified chronic kidney disease; I50.32 Chronic diastolic (congestive) heart failure; Z20.822 Contact with and (suspected) exposure to COVID-19; R10.9 Unspecified abdominal pain; Y83.0 Surgical operation with transplant of whole organ as the cause of abnormal reaction of the patient, or of later complication, without mention of misadventure at the time of the procedure; D63.1 Anemia in chronic kidney disease; E87.5 Hyperkalemia; I95.9 Hypotension, unspecified; M32.14 Glomerular disease in systemic lupus erythematosus; F41.9 Anxiety disorder, unspecified; K29.00 Acute gastritis without bleeding; K52.9 Noninfective gastroenteritis and colitis, unspecified; Z91.14 Patient's other noncompliance with medication regimen; Z88.5 Allergy status to narcotic agent; Z79.52 Long term (current) use of systemic steroids; Z79.899 Other long term (current) drug therapy; Z48.22 Encounter for aftercare following kidney transplant
CPT/HCPCS: 36415; 36416; 36430; 74150; 76700; 76856; 80048; 80053; 80197; 82728; 83540; 83550; 83690; 83880; 83970; 84100; 84484; 84703; 85025; 85610; 85730; 86704; 86706; 86803; 86850; 86900; 86901; 87340; 88305; 88312; 90935; 93005; 93306; 93976; 96374; C9113; G0257; J1644; J2270; J2704; J7507; J7512; J7518; J8499; P9016; Q0162; Q5105; U0003; U0005

== ENCOUNTER 2021-02-26 11:12 | Emergency (ER) | payer BC ==
[2021-02-26 11:58] LABS: #Lymphocytes 0.7 thou/uL (1.20-3.40); #Monocytes 0.3 thou/uL (0.11-0.59); #Neutrophils 3.1 thou/uL (1.40-6.50); %Basophils 0.2 % (0.0-1.0); %Lymphocytes 16.7 % (21.0-51.0); %Monocytes 6.8 % (0.0-10.0); %Neutrophils 75.4 % (42.0-75.0); Hemoglobin 7.3 g/dL (12.0-16.0); Mean Corpuscular HGB CONC 35.5 g/dL (32.0-36.0); Mean Corpuscular Hemoglobin 29.2 pg (27.0-31.0); Mean Corpuscular Volume 82.4 fL (78.0-98.0); Mean Platelet Volume 7.5 fL (7.4-10.4); Platelet Count 217 thou/uL (130-400); RBC Distribution Width 18.1 % (11.5-14.5); Red Blood Cell (RBC) Count 2.49 mill/uL (4.20-5.40); White Blood Cell (WBC) Count 4.1 thou/uL (4.8-10.8)
[2021-02-26 12:25] LABS: ALT (SGPT) 12 U/L (8-55); AST (SGOT) 20 U/L (5-34); Albumin 3.3 g/dL (3.5-5.0); Alkaline Phosphatase 47 U/L (40-110); Anion Gap 18 mmol/L (10-20); BUN (Urea Nitrogen) 42 mg/dL (7.0-18.7); Bilirubin, Total 0.4 mg/dL (0.2-1.2); Calc. Creatinine Clearance 0 mL/min (70-130); Calcium 9.5 mg/dL (7.8-10.44); Carbon Dioxide 20 mmol/L (22-29); Chloride 102 mmol/L (98-107); Glucose 103 mg/dL (70-105); Potassium 4.1 mmol/L (3.5-5.1); Protein, Total 6.3 g/dL (6.0-8.3); Sodium 136 mmol/L (136-145)
[2021-02-26] MEDS ORDERED: Ondansetron PF 4 MG/2 ML Vial ONE (13:19)
[2021-02-26] MEDS ORDERED: Aspirin Chewable 81 MG TAB ONE ×2 (13:40)
[2021-02-26] MEDS ORDERED: EPOETIN ALFA-EPBX (ESRD) 4,000 UNIT/ML VIAL SC SCH (18:00)
== END 2021-02-26 18:21 | disposition home or self-care (01) ==
LOC: ERS 11:12
DX: U07.1 COVID-19 (principal); I12.0 Hypertensive chronic kidney disease with stage 5 chronic kidney disease or end stage renal disease; N18.6 End stage renal disease
CPT/HCPCS: 36415; 71045; 80053; 84484; 85025; 90935; 93005; 96374; G0257; J2405

== ENCOUNTER 2022-01-24 09:22 | Day surgery (SDC) | payer BC ==
[2022-01-23 10:17] VITALS: BMI 16.9
[2022-01-24 10:31] LABS: #Basophils 0.1 thou/uL (0.0-0.2); #Eosinphils 0.1 thou/uL (0.0-0.7); #Lymphocytes 1.6 thou/uL (1.20-3.40); #Monocytes 0.5 thou/uL (0.11-0.59); #Neutrophils 4.8 thou/uL (1.40-6.50); %Basophils 1.2 % (0.0-1.0); %Eosinophils 1.1 % (0.0-10.0); %Lymphocytes 22.1 % (21.0-51.0); %Monocytes 7.2 % (0.0-10.0); %Neutrophils 68.4 % (42.0-75.0); Hemoglobin 12.1 g/dL (12.0-16.0); Mean Corpuscular HGB CONC 33.6 g/dL (32.0-36.0); Mean Corpuscular Hemoglobin 28.6 pg (27.0-31.0); Mean Corpuscular Volume 85.2 fl (78.0-98.0); Mean Platelet Volume 7.7 fL (7.4-10.4); Platelet Count 276 10x3/uL (130-400); RBC Distribution Width 19.5 % (11.5-14.5); Red Blood Cell (RBC) Count 4.21 mill/uL (4.20-5.40); White Blood Cell (WBC) Count 7.1 10x3/uL (4.8-10.8)
[2022-01-24 10:53] LABS: Anion Gap 13 mmol/L (10-20); BUN (Urea Nitrogen) 26 mg/dL (7.0-18.7); Calc. Creatinine Clearance 7 mL/min (70-130); Calcium 10.5 mg/dL (7.8-10.44); Carbon Dioxide 32 mmol/L (22-29); Chloride 97 mmol/L (98-107); Estimated GFR 6; Glucose 94 mg/dL (70-105); Potassium 3.9 mmol/L (3.5-5.1); Sodium 138 mmol/L (136-145)
[2022-01-24] MEDS ORDERED: Midazolam HCl 2 mg/2 ml Vial ONE (11:03)
[2022-01-24] MEDS ORDERED: fentaNYL PF 100 MCG/2 ML SYRINGE ONE (11:54)
[2022-01-24] MEDS ORDERED: Bupivacaine HCl 0.5%/Epinephrine 1:200,000/PF 30 ml Vial ONE (11:55)
[2022-01-24] MEDS ORDERED: Lidocaine 1% (PF) 30 ML VIAL ONE (11:55)
[2022-01-24] MEDS ORDERED: Sodium Chloride 0.9% 100 ML ONE (12:01)
[2022-01-24] MEDS ORDERED: CEFAZOLIN 2 GM VIAL ONE (12:01)
[2022-01-24] MEDS ORDERED: Dexamethasone 20 MG/5 ML VIAL ONE (12:10)
[2022-01-24] MEDS ORDERED: PROPOFOL 200 MG/20 ML VIAL ONE (12:10)
[2022-01-24] MEDS ORDERED: Ondansetron PF 4 MG/2 ML Vial ONE (12:10)
[2022-01-24] MEDS ORDERED: Naloxone HCl 0.4 mg/ml Vial ONE (12:10)
[2022-01-24] MEDS ORDERED: Rocuronium Bromide 10 MG/ML (10ML VIAL) ONE (12:10)
[2022-01-24] MEDS ORDERED: Heparin 10,000 UNITS/ 10 ML VIAL ONE (12:36)
[2022-01-24] MEDS ORDERED: FENTANYL 50 MCG/ML 1 ML VIAL ONE ×3 (13:26→13:37)
[2022-01-24] MEDS ORDERED: diphenhydrAMINE 50 MG/ML VIAL ONE (13:54)
[2022-01-24] MEDS ORDERED: Acetaminophen/Codeine 30-300mg Tablet ONE (14:48)
== END 2022-01-24 14:58 | disposition home or self-care (01) ==
LOC: SDC 09:22
PROVIDERS: ATTEND Specialist
PROC: 0DQU4ZZ Repair Omentum, Percutaneous Endoscopic Approach (ICD-10-PCS; principal; 2022-01-24)
PROC: 0WHG43Z Insertion of Infusion Device into Peritoneal Cavity, Percutaneous Endoscopic Approach (ICD-10-PCS; principal; 2022-01-24)
DX: I12.0 Hypertensive chronic kidney disease with stage 5 chronic kidney disease or end stage renal disease (principal); N18.6 End stage renal disease; M32.9 Systemic lupus erythematosus, unspecified; Z79.2 Long term (current) use of antibiotics; Z79.52 Long term (current) use of systemic steroids; Z79.621 Long term (current) use of calcineurin inhibitor; Z79.899 Other long term (current) drug therapy; Z88.5 Allergy status to narcotic agent; Z94.0 Kidney transplant status; Z99.2 Dependence on renal dialysis
CPT/HCPCS: 80048; 85025; J1200; J1642; J1644; J2001; J2250; J3010; J3490

== ENCOUNTER 2022-04-27 11:56 | Emergency (ER) | payer BC ==
[2022-04-27 16:34] LABS: HBSAB Concentration Less than 8.00 mIU/mL; HBSAg Index 0.25 S/CO (0-0.99); Hep B Core Total Ab Non-Reactive (NonReactive); Hep B Core Total Index 0.36 S/CO (0-0.79); Hep B Surf AB Non-Reactive (NonReactive); Hep B Surf Ag Non-Reactive S/CO (NonReactive); Hep C IgG Ab Non-Reactive (NonReactive); Hep C Index 0.13 S/CO (0-0.79)
== END 2022-04-27 19:15 | disposition home or self-care (01) ==
LOC: ERS 11:56
DX: I12.0 Hypertensive chronic kidney disease with stage 5 chronic kidney disease or end stage renal disease (principal); N18.6 End stage renal disease; Z79.899 Other long term (current) drug therapy
CPT/HCPCS: 86704; 90935; 99285; G0257

== ENCOUNTER 2022-05-21 07:58 | Day surgery (SDC) | payer BC ==
[2022-05-20 15:19] VITALS: BMI 16.9
[2022-05-21 08:55] LABS: #Basophils 0.1 thou/uL (0.0-0.2); #Eosinphils 0.1 thou/uL (0.0-0.7); #Lymphocytes 1.8 thou/uL (1.20-3.40); #Monocytes 0.8 thou/uL (0.11-0.59); #Neutrophils 4.3 thou/uL (1.40-6.50); %Basophils 0.8 % (0.0-1.0); %Eosinophils 1.3 % (0.0-10.0); %Lymphocytes 25.2 % (21.0-51.0); %Monocytes 11.5 % (0.0-10.0); %Neutrophils 61.2 % (42.0-75.0); Hemoglobin 12.5 g/dL (12.0-16.0); Mean Corpuscular HGB CONC 33.8 g/dL (32.0-36.0); Mean Corpuscular Hemoglobin 30.3 pg (27.0-31.0); Mean Corpuscular Volume 89.5 fl (78.0-98.0); Mean Platelet Volume 8.7 fL (7.4-10.4); Platelet Count 190 10x3/uL (130-400); RBC Distribution Width 17.3 % (11.5-14.5); Red Blood Cell (RBC) Count 4.13 mill/uL (4.20-5.40); White Blood Cell (WBC) Count 7.1 10x3/uL (4.8-10.8)
[2022-05-21 09:23] LABS: Anion Gap 16 mmol/L (10-20); BUN (Urea Nitrogen) 32 mg/dL (7.0-18.7); Calc. Creatinine Clearance 6 mL/min (70-130); Calcium 9.5 mg/dL (7.8-10.44); Carbon Dioxide 27 mmol/L (22-29); Chloride 98 mmol/L (98-107); Estimated GFR 5; Glucose 89 mg/dL (70-105); Potassium 4.3 mmol/L (3.5-5.1); Sodium 137 mmol/L (136-145)
[2022-05-21] MEDS ORDERED: Acetaminophen 500 MG TAB ONE (09:26)
[2022-05-21] MEDS ORDERED: Bupivacaine/Epinephrine 0.25% 30 ML VIAL ONE (09:51)
[2022-05-21] MEDS ORDERED: Lidocaine 2% PF 5 ML VIAL ONE (09:51)
[2022-05-21] MEDS ORDERED: FENTANYL 50 MCG/ML 1 ML VIAL ONE ×2 (09:55→11:08)
[2022-05-21] MEDS ORDERED: Midazolam HCl 2 mg/2 ml Vial ONE (09:55)
[2022-05-21] MEDS ORDERED: Sodium Chloride 0.9% 100 ML ONE (10:00)
[2022-05-21] MEDS ORDERED: CEFAZOLIN 2 GM VIAL ONE (10:00)
[2022-05-21] MEDS ORDERED: PROPOFOL 200 MG/20 ML VIAL ONE (10:05)
[2022-05-21] MEDS ORDERED: Lidocaine 1% PF 5 ML VIAL ONE (10:05)
[2022-05-21] MEDS ORDERED: Ondansetron PF 4 MG/2 ML Vial ONE (10:05)
[2022-05-21] MEDS ORDERED: Dexamethasone 20 MG/5 ML VIAL ONE (10:05)
[2022-05-21] MEDS ORDERED: Morphine 2 MG/ML VIAL ONE ×2 (11:43→12:33)
== END 2022-05-21 13:25 | disposition home or self-care (01) ==
LOC: SDC 07:58
PROVIDERS: ATTEND Specialist
PROC: 0WPG03Z Removal of Infusion Device from Peritoneal Cavity, Open Approach (ICD-10-PCS; principal; 2022-05-21)
DX: Z49.02 Encounter for fitting and adjustment of peritoneal dialysis catheter (principal); I12.0 Hypertensive chronic kidney disease with stage 5 chronic kidney disease or end stage renal disease; N18.6 End stage renal disease; M32.9 Systemic lupus erythematosus, unspecified; Z94.0 Kidney transplant status; Z88.5 Allergy status to narcotic agent; Z79.899 Other long term (current) drug therapy; Z79.52 Long term (current) use of systemic steroids
CPT/HCPCS: 80048; 85025; J1100; J2001; J2250; J2272; J2405; J2704; J3010; J3490

== ENCOUNTER 2023-03-17 22:13 | Observation (INO) | payer BC, SELFPAY ==
[2023-03-17 22:36] LABS: #Monocytes 0.2 thou/uL (0.11-0.59); #Neutrophils 13.8 thou/uL (1.40-6.50); %Basophils 0.1 % (0.0-1.0); %Lymphocytes 2.4 % (21.0-51.0); %Monocytes 1.6 % (0.0-10.0); %Neutrophils 95.6 % (42.0-75.0); Hematocrit 21.8 % (36.0-47.0); Hemoglobin 7.9 g/dL (12.0-16.0); Mean Corpuscular HGB CONC 36.2 g/dL (32.0-36.0); Mean Corpuscular Hemoglobin 29.7 pg (27.0-31.0); Platelet Count 232 10x3/uL (130-400); Red Blood Cell (RBC) Count 2.66 mill/uL (4.20-5.40); White Blood Cell (WBC) Count 14.5 10x3/uL (4.8-10.8)
[2023-03-17 22:46] LABS: BHCG - Serum Negative (NEGATIVE); Pregs Control Background? CLEAR/WHITE (CLR/WHITE); Pregs Control Bar Appear? YES (CONTROL BAR)
[2023-03-17 23:00] LABS: ALT (SGPT) 19 U/L (8-55); AST (SGOT) 17 U/L (5-34); Albumin 3.8 g/dL (3.5-5.0); Alkaline Phosphatase 46 U/L (40-110); Anion Gap 18 mmol/L (10-20); BUN (Urea Nitrogen) 38 mg/dL (7.0-18.7); Bilirubin, Total 0.7 mg/dL (0.2-1.2); Calc. Creatinine Clearance 0 mL/min (70-130); Calcium 9.7 mg/dL (7.8-10.44); Carbon Dioxide 28 mmol/L (22-29); Chloride 95 mmol/L (98-107); Estimated GFR 4; Globulin 3.3 g/dL (2.4-3.5); Glucose 267 mg/dL (70-105); Potassium 5.4 mmol/L (3.5-5.1); Protein, Total 7.1 g/dL (6.0-8.3); Sodium 136 mmol/L (136-145)
[2023-03-17] MEDS ORDERED: Acetaminophen 500 MG TAB ONE (23:05)
[2023-03-17 23:11] LABS: Troponin I Less than 0.010 ng/mL (< 0.028)
[2023-03-18] MEDS ORDERED: fentaNYL 50 mcg/mL 1 mL Vial ONE (00:06)
[2023-03-18] MEDS ORDERED: Morphine 2 MG/ML VIAL ONE ×2 (02:28→12:52)
[2023-03-18] MEDS ORDERED: Aspirin Chewable 81 MG TAB ONE (02:29)
[2023-03-18] MEDS ORDERED: Acetaminophen 325 MG TAB PO PRN (02:41)
[2023-03-18] MEDS ORDERED: Ondansetron PF 4 MG/2 ML Vial IVP PRN (02:41)
[2023-03-18 05:56] LABS: Troponin I Less than 0.010 ng/mL (< 0.028)
[2023-03-18 06:38] LABS: #Monocytes 0.6 thou/uL (0.11-0.59); #Neutrophils 13.4 thou/uL (1.40-6.50); %Basophils 0.1 % (0.0-1.0); %Lymphocytes 3.3 % (21.0-51.0); %Monocytes 4.2 % (0.0-10.0); %Neutrophils 91.6 % (42.0-75.0); Hematocrit 19.5 % (36.0-47.0); Hemoglobin 7.1 g/dL (12.0-16.0); Mean Corpuscular HGB CONC 36.4 g/dL (32.0-36.0); Mean Corpuscular Hemoglobin 29.5 pg (27.0-31.0); Mean Corpuscular Volume 80.9 fl (78.0-98.0); Mean Platelet Volume 9.7 fL (7.4-10.4); Platelet Count 182 10x3/uL (130-400); RBC Distribution Width 16.7 % (11.5-14.5); Red Blood Cell (RBC) Count 2.41 mill/uL (4.20-5.40); White Blood Cell (WBC) Count 14.6 10x3/uL (4.8-10.8)
[2023-03-18 07:09] LABS: Troponin I Less than 0.010 ng/mL (< 0.028)
[2023-03-18 07:21] LABS: Anion Gap 17 mmol/L (10-20); BUN (Urea Nitrogen) 40 mg/dL (7.0-18.7); Calc. Creatinine Clearance 4 mL/min (70-130); Calcium 9.5 mg/dL (7.8-10.44); Carbon Dioxide 28 mmol/L (22-29); Chloride 97 mmol/L (98-107); Estimated GFR 3; Glucose 152 mg/dL (70-105); Potassium 5.5 mmol/L (3.5-5.1); Sodium 136 mmol/L (136-145)
[2023-03-18] MEDS ORDERED: predniSONE 5 MG TAB PO SCH (09:00)
[2023-03-18] MEDS ORDERED: Iopamidol-370 76% 500 ML MDV (1 ML CHARGE) ONE (09:45)
[2023-03-18] MEDS ORDERED: Heparin 5,000 UNITS/ML VIAL ONE (09:55)
[2023-03-18] MEDS ORDERED: Regadenoson 0.4 MG/5 ML SYRINGE ONE (10:55)
[2023-03-18] MEDS ORDERED: Morphine 4 MG/ML VIAL ONE (12:32)
[2023-03-18] MEDS: Heparin 5,000 UNITS/ML VIAL SC SCH ×2 (12:36→20:01)
[2023-03-18] MEDS ORDERED: Carvedilol 25 MG TAB ONE ×2 (12:40→16:00)
[2023-03-18] MEDS: Morphine 2 MG/ML VIAL SLOW IVP PRN ×2 (12:55→20:32)
[2023-03-18 13:51] LABS: HBSAB Concentration Less than 8.00 mIU/mL; HBSAg Index 0.68 S/CO (0-0.99); Hep B Core Total Ab Non-Reactive (NonReactive); Hep B Core Total Index 0.25 S/CO (0-0.79); Hep B Surf AB Non-Reactive (NonReactive); Hep B Surf Ag Non-Reactive S/CO (NonReactive); Hep C IgG Ab Non-Reactive S/CO (NonReactive)
[2023-03-18] MEDS ORDERED: Carvedilol 25 MG TAB PO SCH (16:30)
[2023-03-18 17:31] LABS: SARS-CoV-2 NAA Rapid Test Not Detected (NotDetected)
[2023-03-18] MEDS: Carvedilol 25 MG TAB PO SCH (20:01)
[2023-03-18] MEDS: NIFEdipine XL 60 MG ER.TAB PO SCH (20:01)
[2023-03-18 20:45] LABS: Iron 138 ug/dL (50-170); Iron Binding Capacity, Total 151 mcg/dL (265-497)
[2023-03-18 22:39] LABS: Complement-C3 69 mg/dL (83-193); Complement-C4 29 mg/dL (15-57)
[2023-03-19] MEDS: Morphine 2 MG/ML VIAL SLOW IVP PRN ×2 (02:10→06:50)
[2023-03-19 05:11] LABS: #Monocytes 0.7 thou/uL (0.11-0.59); %Basophils 0.1 % (0.0-1.0); %Eosinophils 0.1 % (0.0-10.0); %Lymphocytes 7.6 % (21.0-51.0); %Monocytes 7.7 % (0.0-10.0); %Neutrophils 84.1 % (42.0-75.0); Hematocrit 21.1 % (36.0-47.0); Hemoglobin 7.5 g/dL (12.0-16.0); Mean Corpuscular HGB CONC 35.5 g/dL (32.0-36.0); Mean Corpuscular Hemoglobin 29.4 pg (27.0-31.0); Mean Corpuscular Volume 82.7 fl (78.0-98.0); Mean Platelet Volume 9.7 fL (7.4-10.4); Platelet Count 196 10x3/uL (130-400); RBC Distribution Width 16.9 % (11.5-14.5); Red Blood Cell (RBC) Count 2.55 mill/uL (4.20-5.40); White Blood Cell (WBC) Count 9.5 10x3/uL (4.8-10.8)
[2023-03-19 05:46] LABS: ALT (SGPT) 16 U/L (8-55); AST (SGOT) 12 U/L (5-34); Albumin 3.4 g/dL (3.5-5.0); Alkaline Phosphatase 50 U/L (40-110); Anion Gap 13 mmol/L (10-20); BUN (Urea Nitrogen) 15 mg/dL (7.0-18.7); Bilirubin, Total 0.5 mg/dL (0.2-1.2); Calc. Creatinine Clearance 10 mL/min (70-130); Calcium 8.9 mg/dL (7.8-10.44); Carbon Dioxide 34 mmol/L (22-29); Chloride 98 mmol/L (98-107); Estimated GFR 9; Globulin 3.1 g/dL (2.4-3.5); Glucose 145 mg/dL (70-105); Potassium 3.9 mmol/L (3.5-5.1); Protein, Total 6.5 g/dL (6.0-8.3); Sodium 141 mmol/L (136-145)
[2023-03-19] MEDS ORDERED: EPOETIN ALFA-EPBX 10,000 UNITS/ML VIAL SC SCH (06:30)
[2023-03-19] MEDS: Carvedilol 25 MG TAB PO SCH ×2 (09:00→22:38)
[2023-03-19] MEDS: Hydroxychloroquine Sulfate 200 MG TAB PO SCH (09:00)
[2023-03-19] MEDS: NIFEdipine XL 60 MG ER.TAB PO SCH ×2 (09:00→22:39)
[2023-03-19] MEDS: Heparin 5,000 UNITS/ML VIAL SC SCH ×2 (09:01→22:39)
[2023-03-19] MEDS: predniSONE 20 MG TAB PO SCH (09:01)
[2023-03-19] MEDS ORDERED: Gabapentin 100 MG CAP PO SCH (09:15)
[2023-03-19 12:20] VITALS: BMI 16.2
[2023-03-19] MEDS: Morphine 4 MG/ML VIAL SLOW IVP PRN (22:39)
[2023-03-20] MEDS: Morphine 4 MG/ML VIAL SLOW IVP PRN ×2 (03:59→08:22)
[2023-03-20 05:38] LABS: #Monocytes 1.1 thou/uL (0.11-0.59); #Neutrophils 8.2 thou/uL (1.40-6.50); %Basophils 0.2 % (0.0-1.0); %Eosinophils 0.1 % (0.0-10.0); %Lymphocytes 8.8 % (21.0-51.0); %Monocytes 10.9 % (0.0-10.0); %Neutrophils 78.2 % (42.0-75.0); Hematocrit 23.1 % (36.0-47.0); Hemoglobin 8.2 g/dL (12.0-16.0); Mean Corpuscular HGB CONC 35.5 g/dL (32.0-36.0); Mean Corpuscular Hemoglobin 29.6 pg (27.0-31.0); Mean Corpuscular Volume 83.4 fl (78.0-98.0); Mean Platelet Volume 9.4 fL (7.4-10.4); Platelet Count 188 10x3/uL (130-400); RBC Distribution Width 16.8 % (11.5-14.5); Red Blood Cell (RBC) Count 2.77 mill/uL (4.20-5.40); White Blood Cell (WBC) Count 10.4 10x3/uL (4.8-10.8)
[2023-03-20 06:25] LABS: Anion Gap 14 mmol/L (10-20); BUN (Urea Nitrogen) 13 mg/dL (7.0-18.7); Calc. Creatinine Clearance 13 mL/min (70-130); Calcium 8.9 mg/dL (7.8-10.44); Carbon Dioxide 29 mmol/L (22-29); Chloride 100 mmol/L (98-107); Estimated GFR 13; Glucose 91 mg/dL (70-105); Sodium 139 mmol/L (136-145)
[2023-03-20 08:18] VITALS: TEMP 97.7
[2023-03-20] MEDS: Heparin 5,000 UNITS/ML VIAL SC SCH (08:23)
[2023-03-20] MEDS: predniSONE 20 MG TAB PO SCH (08:25)
[2023-03-20] MEDS: Hydroxychloroquine Sulfate 200 MG TAB PO SCH (08:25)
[2023-03-20 12:05] LABS: dsDNA IgG Antibody 2.1 IU/mL (<10 Negative)
[2023-03-20 12:53] VITALS: BP 124/88
[2023-03-20] MEDS: NIFEdipine XL 60 MG ER.TAB PO SCH (12:59)
[2023-03-20] MEDS: Carvedilol 25 MG TAB PO SCH (13:20)
[2023-03-21] MEDS ORDERED: FLU VACC QS2023-24(6MOS UP)/PF 60 MCG/0.5 ML SYRINGE IM ONE (23:45)
== END 2023-03-20 15:15 | disposition home or self-care (01) ==
LOC: ERS 22:13 → ERHOLD 03-18 03:08 → 2SE 03-18 19:37
PROVIDERS: ADMIT Internal Medicine; ATTEND Hospitalist
DX: R94.39 Abnormal result of other cardiovascular function study (principal); I13.2 Hypertensive heart and chronic kidney disease with heart failure and with stage 5 chronic kidney disease, or end stage renal disease; I50.33 Acute on chronic diastolic (congestive) heart failure; N18.6 End stage renal disease; M32.9 Systemic lupus erythematosus, unspecified; D63.1 Anemia in chronic kidney disease; J96.01 Acute respiratory failure with hypoxia; E87.5 Hyperkalemia; D72.829 Elevated white blood cell count, unspecified; E44.0 Moderate protein-calorie malnutrition; Z99.2 Dependence on renal dialysis; Z88.5 Allergy status to narcotic agent; Z79.899 Other long term (current) drug therapy
CPT/HCPCS: 36415; 71045; 71275; 78452; 80048; 80053; 82728; 83540; 83550; 83880; 84484; 84703; 85025; 85379; 86160; 86225; 86704; 90935; 93005; 93010; 93017; 94760; 96372; 96375; 96376; A9502; G0257; G0378; J1644; J2270; J2272; J2405; J2785; J3010; J7512; Q5106; Q9967

== ENCOUNTER 2024-09-28 16:09 | Emergency (ER) | payer BC ==
[2024-09-28 18:43] LABS: #Basophils Less than 0.03 10x3/uL (0.0-0.2); #Eosinophils Less than 0.03 10x3/uL (0.0-0.7); #Monocytes 0.27 10x3/uL (0.11-0.59); #Neutrophils 5.29 10x3/uL (1.40-6.50); %Basophils 0.2 % (0.0-1.0); %Eosinophils 0.0 % (0.0-10.0); %Lymphocytes 6.8 % (21.0-51.0); %Monocytes 4.5 % (0.0-10.0); %Neutrophils 88.0 % (42.0-75.0); Hematocrit 25.3 % (36.0-47.0); Hemoglobin 9.0 g/dL (12.0-16.0); Mean Corpuscular Hemoglobin 30.3 pg (27.0-31.0); Mean Corpuscular Volume 85.2 fL (78.0-98.0); Platelet Count 157 10x3/uL (130-400); Red Blood Cell (RBC) Count 2.97 mill/uL (4.20-5.40); White Blood Cell (WBC) Count 6.01 10x3/uL (4.8-10.8)
[2024-09-28 19:12] LABS: ALT (SGPT) 9 U/L (Less than 34); AST (SGOT) 25 U/L (11-34); Albumin 3.8 g/dL (3.1-4.5); Alkaline Phosphatase 42 U/L (40-110); Anion Gap 14 mmol/L (10-20); BUN (Urea Nitrogen) 17 mg/dL (7.0-18.7); Bilirubin, Total 0.3 mg/dL (0.3-1.2); Calc. Creatinine Clearance 0 mL/min (70-130); Calcium 9.6 mg/dL (7.8-10.44); Carbon Dioxide 32 mmol/L (22-29); Chloride 97 mmol/L (98-107); Globulin 3.8 g/dL (2.4-3.5); Glucose 127 mg/dL (70-105); Potassium 4.9 mmol/L (3.5-5.1); Sodium 138 mmol/L (136-145)
[2024-09-28] MEDS ORDERED: HYDROcodone/Acetaminophen 10/325 mg Tablet ONE (19:22)
== END 2024-09-28 19:48 | disposition home or self-care (01) ==
LOC: ERS 16:09
DX: M32.9 Systemic lupus erythematosus, unspecified (principal); I12.0 Hypertensive chronic kidney disease with stage 5 chronic kidney disease or end stage renal disease; N18.6 End stage renal disease; Z99.2 Dependence on renal dialysis
CPT/HCPCS: 71045; 80053; 83605; 85025; 87040; 87428; 96372; J3010

== ENCOUNTER 2024-10-02 23:19 | Inpatient (IN) | payer BC ==
[2024-10-03 00:06] LABS: #Basophils Less than 0.03 10x3/uL (0.0-0.2); #Eosinophils Less than 0.03 10x3/uL (0.0-0.7); #Monocytes 0.48 10x3/uL (0.11-0.59); #Neutrophils 9.57 10x3/uL (1.40-6.50); %Basophils 0.1 % (0.0-1.0); %Eosinophils 0.0 % (0.0-10.0); %Lymphocytes 4.7 % (21.0-51.0); %Monocytes 4.5 % (0.0-10.0); %Neutrophils 89.9 % (42.0-75.0); Hematocrit 24.3 % (36.0-47.0); Hemoglobin 8.8 g/dL (12.0-16.0); Mean Corpuscular Hemoglobin 30.7 pg (27.0-31.0); Mean Corpuscular Volume 84.7 fL (78.0-98.0); Platelet Count 190 10x3/uL (130-400); Red Blood Cell (RBC) Count 2.87 mill/uL (4.20-5.40); White Blood Cell (WBC) Count 10.64 10x3/uL (4.8-10.8)
[2024-10-03 00:22] LABS: ALT (SGPT) 10 U/L (Less than 34); AST (SGOT) 21 U/L (11-34); Albumin 3.6 g/dL (3.1-4.5); Alkaline Phosphatase 48 U/L (40-110); Anion Gap 22 mmol/L (10-20); BUN (Urea Nitrogen) 76 mg/dL (7.0-18.7); Bilirubin, Total 0.2 mg/dL (0.3-1.2); Calc. Creatinine Clearance 0 mL/min (70-130); Calcium 9.1 mg/dL (7.8-10.44); Carbon Dioxide 28 mmol/L (22-29); Chloride 91 mmol/L (98-107); Globulin 3.4 g/dL (2.4-3.5); Glucose 165 mg/dL (70-105); Potassium 5.7 mmol/L (3.5-5.1); Sodium 135 mmol/L (136-145)
[2024-10-03 02:16] LABS: Troponin I 0.015 ng/mL (< 0.028)
[2024-10-03] MEDS ORDERED: Dexamethasone 10 MG/ML VIAL ONE (02:16)
[2024-10-03] MEDS ORDERED: Acetaminophen 325 MG TAB PO PRN (03:38)
[2024-10-03] MEDS: HYDROmorphone 0.5 MG/0.5 ML SYRINGE SLOW IVP PRN (04:39)
[2024-10-03] MEDS: Ondansetron PF 4 MG/2 ML Vial IVP PRN (04:39)
[2024-10-03] MEDS ORDERED: Ondansetron PF 4 MG/2 ML Vial ONE (04:42)
[2024-10-03] MEDS ORDERED: HYDROmorphone 0.5 MG/0.5 ML SYRINGE ONE (04:42)
[2024-10-03] MEDS: Heparin 5,000 UNITS/ML VIAL SC SCH (10:06)
[2024-10-03 10:38] VITALS: BMI 16.9
[2024-10-03] MEDS: Dextrose 50% Abboject 50 ML SYRINGE SLOW IVP SCH (11:48)
[2024-10-03] MEDS: ALPRAZolam 0.25 MG TAB PO PRN (15:24)
[2024-10-03] MEDS: hydrALAZINE 20 MG/ML VIAL SLOW IVP SCH (21:29)
[2024-10-03] MEDS: Cyclobenzaprine 10 MG TAB PO SCH (23:11)
[2024-10-03 23:27] LABS: Anion Gap 17 mmol/L (10-20); BUN (Urea Nitrogen) 17 mg/dL (7.0-18.7); Calc. Creatinine Clearance 11 mL/min (70-130); Carbon Dioxide 27 mmol/L (22-29); Chloride 101 mmol/L (98-107); Potassium 4.9 mmol/L (3.5-5.1); Sodium 140 mmol/L (136-145)
[2024-10-03 23:28] LABS: ALT (SGPT) 8 U/L (Less than 34); AST (SGOT) 19 U/L (11-34); Albumin 3.2 g/dL (3.1-4.5); Alkaline Phosphatase 38 U/L (40-110); Bilirubin, Total 0.3 mg/dL (0.3-1.2); Calcium 9.1 mg/dL (7.8-10.44); Globulin 3.3 g/dL (2.4-3.5); Glucose 118 mg/dL (70-105); Magnesium 2.0 mg/dL (1.6-2.6)
[2024-10-04 05:07] LABS: #Basophils Less than 0.03 10x3/uL (0.0-0.2); #Eosinophils Less than 0.03 10x3/uL (0.0-0.7); #Monocytes 1.01 10x3/uL (0.11-0.59); #Neutrophils 7.64 10x3/uL (1.40-6.50); %Basophils 0.0 % (0.0-1.0); %Eosinophils 0.0 % (0.0-10.0); %Lymphocytes 6.7 % (21.0-51.0); %Monocytes 10.7 % (0.0-10.0); %Neutrophils 80.7 % (42.0-75.0); Hematocrit 22.8 % (36.0-47.0); Hemoglobin 8.1 g/dL (12.0-16.0); Mean Corpuscular Hemoglobin 29.9 pg (27.0-31.0); Mean Corpuscular Volume 84.1 fL (78.0-98.0); Platelet Count 152 10x3/uL (130-400); Red Blood Cell (RBC) Count 2.71 mill/uL (4.20-5.40); White Blood Cell (WBC) Count 9.46 10x3/uL (4.8-10.8)
[2024-10-04 05:36] LABS: Anion Gap 14 mmol/L (10-20); BUN (Urea Nitrogen) 32 mg/dL (7.0-18.7); Calc. Creatinine Clearance 9 mL/min (70-130); Calcium 8.9 mg/dL (7.8-10.44); Carbon Dioxide 29 mmol/L (22-29); Chloride 101 mmol/L (98-107); Glucose 138 mg/dL (70-105); Potassium 5.1 mmol/L (3.5-5.1); Sodium 139 mmol/L (136-145)
[2024-10-04] MEDS ORDERED: methylPREDNISolone Sod Succ/PF 40 MG in Sodium Chloride 0.9% 250 ML 250 ML IVPB SCH (09:00)
[2024-10-04] MEDS: NIFEdipine XL 30 MG ER.TAB PO SCH (09:53)
[2024-10-04] MEDS ORDERED: Epoetin (ESRD) 10,000 UNITS/ML VIAL SC SCH (11:45)
[2024-10-04 12:27] LABS: dsDNA IgG Antibody 1.6 IU/mL (<10 Negative)
[2024-10-04] MEDS: Pantoprazole 40 MG DR.TAB PO SCH (14:17)
[2024-10-04] MEDS: Carvedilol 25 MG TAB PO SCH (14:17)
[2024-10-04] MEDS: EPOETIN ALFA-EPBX (ESRD) 10,000 UNITS/ML VIAL SC SCH (15:09)
[2024-10-04] MEDS: NIFEdipine XL 60 MG ER.TAB PO SCH (19:53)
[2024-10-04] MEDS: Ketorolac Tromethamine 30 MG (1 mL) VIAL IVP PRN (19:57)
[2024-10-05 06:01] LABS: #Basophils Less than 0.03 10x3/uL (0.0-0.2); #Eosinophils Less than 0.03 10x3/uL (0.0-0.7); #Monocytes 0.93 10x3/uL (0.11-0.59); #Neutrophils 8.58 10x3/uL (1.40-6.50); %Basophils 0.1 % (0.0-1.0); %Eosinophils 0.0 % (0.0-10.0); %Lymphocytes 8.0 % (21.0-51.0); %Monocytes 8.8 % (0.0-10.0); %Neutrophils 81.5 % (42.0-75.0); Hematocrit 23.5 % (36.0-47.0); Hemoglobin 8.3 g/dL (12.0-16.0); Mean Corpuscular Hemoglobin 29.6 pg (27.0-31.0); Mean Corpuscular Volume 83.9 fL (78.0-98.0); Platelet Count 146 10x3/uL (130-400); Red Blood Cell (RBC) Count 2.80 mill/uL (4.20-5.40); White Blood Cell (WBC) Count 10.53 10x3/uL (4.8-10.8)
[2024-10-05 06:26] LABS: Anion Gap 16 mmol/L (10-20); BUN (Urea Nitrogen) 75 mg/dL (7.0-18.7); Calc. Creatinine Clearance 6 mL/min (70-130); Calcium 8.8 mg/dL (7.8-10.44); Carbon Dioxide 28 mmol/L (22-29); Chloride 99 mmol/L (98-107); Glucose 134 mg/dL (70-105); Iron 180 ug/dL (50-170); Iron Binding Capacity, Total 174 mcg/dL (265-497); Potassium 5.0 mmol/L (3.5-5.1); Sodium 138 mmol/L (136-145)
[2024-10-05] MEDS: NIFEdipine XL 30 MG ER.TAB PO SCH (08:00)
[2024-10-05] MEDS: Pantoprazole 40 MG DR.TAB PO SCH (08:56)
[2024-10-06 05:26] LABS: Hematocrit 22.3 % (36.0-47.0); Hemoglobin 7.8 g/dL (12.0-16.0)
[2024-10-06 05:58] LABS: Anion Gap 16 mmol/L (10-20); BUN (Urea Nitrogen) 38 mg/dL (7.0-18.7); Calc. Creatinine Clearance 9 mL/min (70-130); Calcium 9.0 mg/dL (7.8-10.44); Carbon Dioxide 28 mmol/L (22-29); Chloride 102 mmol/L (98-107); Glucose 112 mg/dL (70-105); Potassium 4.5 mmol/L (3.5-5.1); Sodium 141 mmol/L (136-145)
[2024-10-06] MEDS: EPOETIN ALFA-EPBX (ESRD) 10,000 UNITS/ML VIAL IVP SCH (11:15)
[2024-10-06 11:18] VITALS: BP 160/97; TEMP 97.9
== END 2024-10-06 13:20 | disposition home or self-care (01) | DRG 545 ==
LOC: ERS 23:19 → ERHOLD 10-03 03:38 → OBS 10-03 08:39 → OBSVTOIN 10-04 09:26
PROVIDERS: ADMIT Internal Medicine; ATTEND Family Medicine
DX: M32.14 Glomerular disease in systemic lupus erythematosus (principal); N18.6 End stage renal disease; I12.0 Hypertensive chronic kidney disease with stage 5 chronic kidney disease or end stage renal disease; Z94.0 Kidney transplant status; E87.5 Hyperkalemia; D63.1 Anemia in chronic kidney disease; F32.A Depression, unspecified; Z88.8 Allergy status to other drugs, medicaments and biological substances; Z79.899 Other long term (current) drug therapy
CPT/HCPCS: 36415; 36416; 71045; 80048; 80053; 82550; 82728; 83540; 83550; 83735; 84484; 85014; 85018; 85025; 86141; 86160; 86225; 93005; 96372; 96375; 96376; G0378; J0360; J1100; J1171; J1644; J1815; J1885; J2270; J2405; J2919; J3010; J7050; J7999; Q5105

== ENCOUNTER 2024-11-18 03:52 | Inpatient (IN) | payer BC ==
[2024-11-18] MEDS ORDERED: Ondansetron PF 4 MG/2 ML Vial IVP PRN (04:37)
[2024-11-18 05:04] VITALS: BMI 18.2
[2024-11-18 09:14] LABS: #Basophils Less than 0.03 10x3/uL (0.0-0.2); #Eosinophils 0.08 10x3/uL (0.0-0.7); #Monocytes 1.64 10x3/uL (0.11-0.59); #Neutrophils 5.62 10x3/uL (1.40-6.50); %Basophils 0.2 % (0.0-1.0); %Eosinophils 0.9 % (0.0-10.0); %Lymphocytes 14.5 % (21.0-51.0); %Monocytes 19.0 % (0.0-10.0); %Neutrophils 64.9 % (42.0-75.0); Hematocrit 36.8 % (36.0-47.0); Hemoglobin 12.4 g/dL (12.0-16.0); Mean Corpuscular Hemoglobin 29.9 pg (27.0-31.0); Mean Corpuscular Volume 88.7 fL (78.0-98.0); Platelet Count 159 10x3/uL (130-400); Red Blood Cell (RBC) Count 4.15 mill/uL (4.20-5.40); White Blood Cell (WBC) Count 8.65 10x3/uL (4.8-10.8)
[2024-11-18 09:34] LABS: Anion Gap 19 mmol/L (10-20); BUN (Urea Nitrogen) 53 mg/dL (7.0-18.7); Calc. Creatinine Clearance 4 mL/min (70-130); Calcium 9.5 mg/dL (7.8-10.44); Carbon Dioxide 26 mmol/L (22-29); Chloride 97 mmol/L (98-107); Glucose 92 mg/dL (70-105); Magnesium 2.6 mg/dL (1.6-2.6); Potassium 5.9 mmol/L (3.5-5.1); Sodium 136 mmol/L (136-145)
[2024-11-18] MEDS: Carvedilol 25 MG TAB PO SCH (10:19)
[2024-11-18] MEDS: NIFEdipine XL 30 MG ER.TAB PO SCH (10:19)
[2024-11-18] MEDS: Acetaminophen 325 MG TAB PO PRN (10:23)
[2024-11-18] MEDS: Heparin 5,000 UNITS/ML VIAL SC SCH (10:26)
[2024-11-18 14:04] LABS: HBSAB Concentration 23.82 mIU/mL; Hep B Core Total Ab NONREACTIVE (NonReactive); Hep B Core Total Index 0.16 S/CO (0-0.79); Hep B Surf Ag NONREACTIVE S/CO (NonReactive)
[2024-11-18] MEDS: Ketorolac Tromethamine 30 MG (1 mL) VIAL IVP SCH (14:14)
[2024-11-18] MEDS: Benzonatate 100 MG CAP PO PRN (14:14)
[2024-11-18] MEDS: Heparin 10,000 UNITS/ 10 ML VIAL FS PRN (15:03)
[2024-11-19 04:10] LABS: #Basophils Less than 0.03 10x3/uL (0.0-0.2); #Eosinophils Less than 0.03 10x3/uL (0.0-0.7); #Monocytes 0.98 10x3/uL (0.11-0.59); #Neutrophils 4.76 10x3/uL (1.40-6.50); %Basophils 0.1 % (0.0-1.0); %Eosinophils 0.1 % (0.0-10.0); %Lymphocytes 15.8 % (21.0-51.0); %Monocytes 14.2 % (0.0-10.0); %Neutrophils 69.2 % (42.0-75.0); Hematocrit 36.8 % (36.0-47.0); Hemoglobin 12.6 g/dL (12.0-16.0); Mean Corpuscular Hemoglobin 30.0 pg (27.0-31.0); Mean Corpuscular Volume 87.6 fL (78.0-98.0); Platelet Count 138 10x3/uL (130-400); Red Blood Cell (RBC) Count 4.20 mill/uL (4.20-5.40); White Blood Cell (WBC) Count 6.89 10x3/uL (4.8-10.8)
[2024-11-19 04:18] LABS: Anion Gap 16 mmol/L (10-20); BUN (Urea Nitrogen) 22 mg/dL (7.0-18.7); Calc. Creatinine Clearance 7 mL/min (70-130); Calcium 8.3 mg/dL (7.8-10.44); Carbon Dioxide 30 mmol/L (22-29); Chloride 98 mmol/L (98-107); Glucose 96 mg/dL (70-105); Potassium 5.3 mmol/L (3.5-5.1); Sodium 139 mmol/L (136-145)
[2024-11-19 20:22] VITALS: BMI 18.8
[2024-11-19] MEDS: ALPRAZolam 0.25 MG TAB PO PRN (23:07)
[2024-11-20 04:49] LABS: #Basophils Less than 0.03 10x3/uL (0.0-0.2); #Eosinophils Less than 0.03 10x3/uL (0.0-0.7); #Monocytes 0.65 10x3/uL (0.11-0.59); #Neutrophils 3.08 10x3/uL (1.40-6.50); %Basophils 0.2 % (0.0-1.0); %Eosinophils 0.4 % (0.0-10.0); %Lymphocytes 18.5 % (21.0-51.0); %Monocytes 14.0 % (0.0-10.0); %Neutrophils 66.5 % (42.0-75.0); Hematocrit 38.5 % (36.0-47.0); Hemoglobin 13.2 g/dL (12.0-16.0); Mean Corpuscular Hemoglobin 29.8 pg (27.0-31.0); Mean Corpuscular Volume 86.9 fL (78.0-98.0); Platelet Count 135 10x3/uL (130-400); Red Blood Cell (RBC) Count 4.43 mill/uL (4.20-5.40); White Blood Cell (WBC) Count 4.64 10x3/uL (4.8-10.8)
[2024-11-20 05:20] LABS: Anion Gap 13 mmol/L (10-20); BUN (Urea Nitrogen) 9 mg/dL (7.0-18.7); Calc. Creatinine Clearance 16 mL/min (70-130); Calcium 8.9 mg/dL (7.8-10.44); Carbon Dioxide 28 mmol/L (22-29); Chloride 98 mmol/L (98-107); Glucose 114 mg/dL (70-105); Magnesium 2.0 mg/dL (1.6-2.6); Potassium 3.4 mmol/L (3.5-5.1); Sodium 136 mmol/L (136-145)
[2024-11-20 15:27] VITALS: BP 131/87; TEMP 98.7
== END 2024-11-20 16:45 | disposition home or self-care (01) | DRG 640 ==
LOC: 2SE 04:27 → INTOOBSV 04:27 → OBSVTOIN 11-19 13:30
PROVIDERS: ADMIT Internal Medicine; ATTEND Internal Medicine
PROC: 5A1D70Z Performance of Urinary Filtration, Intermittent, Less than 6 Hours Per Day (ICD-10-PCS; principal; 2024-11-19)
DX: E87.70 Fluid overload, unspecified (principal); I50.33 Acute on chronic diastolic (congestive) heart failure; N18.6 End stage renal disease; J96.01 Acute respiratory failure with hypoxia; I13.2 Hypertensive heart and chronic kidney disease with heart failure and with stage 5 chronic kidney disease, or end stage renal disease; Z94.0 Kidney transplant status; Z88.8 Allergy status to other drugs, medicaments and biological substances; D64.9 Anemia, unspecified; F32.A Depression, unspecified; Z79.899 Other long term (current) drug therapy; E87.5 Hyperkalemia; E16.2 Hypoglycemia, unspecified; J09.X2 Influenza due to identified novel influenza A virus with other respiratory manifestations; M32.9 Systemic lupus erythematosus, unspecified; Z99.2 Dependence on renal dialysis; Z91.158 Patient's noncompliance with renal dialysis for other reason
CPT/HCPCS: 36415; 36416; 71045; 80048; 83605; 83690; 83735; 84100; 84703; 85025; 86704; 86706; 87340; 93005; 94760; 96374; 96375; 96376; G0378; J1644; J1815; J1885; J7512; J7999; Q0162